=== PATIENT | female | born 1970 ===

== ENCOUNTER 2022-07-03 06:25 | Day surgery (SDC) | payer OTHER ==
[~2022-07-03] VITALS: Ht 170.2 cm; Wt 77.1 kg
[~2022-07-03 06:25] MED LIST: LISINO PO
== END 2022-07-03 14:00 | disposition home or self-care (01) ==
LOC: CIR.AMB 06:25
PROVIDERS: ATTEND Specialist
DX: L72.0 Epidermal cyst (principal); L91.0 Hypertrophic scar; Z20.822 Contact with and (suspected) exposure to COVID-19; I10 Essential (primary) hypertension; G43.909 Migraine, unspecified, not intractable, without status migrainosus